=== PATIENT | female | born 1955 | race Caucasian/White ===

== ENCOUNTER 2017-07-07 05:45 | Day surgery (SDC) | payer OTHER ==
[~2017-07-07] VITALS: Ht 167.6 cm; Wt 104.1 kg
[2017-07-07] VITALS (11 sets, daily range): BP systolic 121–161; BP diastolic 80–90; PULSE 53–89; RESP 16–20; Ht 167.6 cm; Wt 104.1 kg
[2017-07-07] MEDS ORDERED: SOD CHLORIDE 0.9% 1,000 ML IV SCH (06:00)
[2017-07-07] MEDS ORDERED: CEFAZOLIN 2 GM/50 ML (PMX) 50 ML IVPB SCH (06:00)
[2017-07-07] MEDS ORDERED: CEFAZOLIN 1 GM INJ ONE (07:00)
[2017-07-07] MEDS ORDERED: GUAI120011 PO (10:29)
[2017-07-07] MEDS ORDERED: CHOL100062 PO (10:29)
[2017-07-07] MEDS ORDERED: HYDR25TA6 PO (10:30)
[2017-07-07] MEDS ORDERED: METF500T4 PO (10:30)
[2017-07-07] MEDS ORDERED: BENA20TA48 PO (11:14)
[2017-07-07] MEDS ORDERED: AMLO-147 PO (11:14)
[2017-07-07] MEDS ORDERED: ASPI-664 PO (11:14)
--- NOTE | 2017-07-07 11:37 | RADRPT ---
PROCEDURE: XR Chest. CLINICAL INDICATION: Preoperative. TECHNIQUE: Single frontal view. COMPARISON: None. FINDINGS: The lungs are clear. The heart size is normal. There is no pleural effusion or pneumothorax. There are guide wires in both breasts. IMPRESSION: 1. Guidewires in both breasts. 2. Otherwise normal chest radiograph. RPTAT: QQ .Godwin Reynolds MD, MD Date Time Electronically viewed and signed by .Godwin Reynolds MD, on 07/07/2017 11:37 .R/
--- NOTE | 2017-07-07 11:37 | RADRPT ---
PROCEDURE: XR Chest. CLINICAL INDICATION: Preoperative. TECHNIQUE: Single frontal view. COMPARISON: None. FINDINGS: The lungs are clear. The heart size is normal. There is no pleural effusion or pneumothorax. There are guide wires in both breasts. IMPRESSION: 1. Guidewires in both breasts. 2. Otherwise normal chest radiograph. RPTAT: QQ .oGdwin Reynolds MD, MD Date Time Electronically viewed and signed by .Godwin Reynolds MD, on 07/07/2017 11:37 .R/
[2017-07-07] MEDS ORDERED: BUPIVACAINE 0.25% (MPF) 30 ML INJ ONE (11:40)
[2017-07-07] MEDS ORDERED: FENTAnyl 50 MCG/ML VIAL ONE ×2 (12:06→12:27)
[2017-07-07] MEDS ORDERED: DEXAMETHASONE 4 MG/ML 1 ML INJ ONE (12:18)
[2017-07-07] MEDS ORDERED: PROPOFOL 100 ML ONE (12:18)
[2017-07-07] MEDS ORDERED: LIDOCAINE 2% (SDV) 5 ML INJ ONE (12:18)
[2017-07-07] MEDS ORDERED: KETOROLAC 30 MG INJ IV PRN (13:00)
[2017-07-07] MEDS ORDERED: EPHEDrine SULFATE 50 MG/5 ML SYG IV PRN (13:00)
[2017-07-07] MEDS ORDERED: METOCLOPRAMIDE 10 MG INJ IV PRN (13:00)
[2017-07-07] MEDS ORDERED: hydrALAzine 20 MG INJ IV PRN (13:00)
[2017-07-07] MEDS ORDERED: MEPERIDINE 25 MG INJ IV PRN (13:00)
[2017-07-07] MEDS ORDERED: FENTAnyl 50 MCG/ML VIAL IV PRN ×3 (13:00)
[2017-07-07] MEDS ORDERED: ONDANSETRON 4 MG INJ IV PRN (13:00)
[2017-07-07] MEDS ORDERED: LABETALOL HCL 20MG INJ IV PRN (13:00)
[2017-07-07] MEDS ORDERED: DIPHENHYDRAMINE 50 MG INJ IV PRN (13:00)
[2017-07-07] MEDS ORDERED: morphine (1 MG/ML) 10ML SYRINGE IV PRN ×3 (13:00)
[2017-07-07] MEDS ORDERED: ONDANSETRON 4 MG INJ ONE (13:11)
--- NOTE | 2017-07-07 13:17 | OPR ---
Date/Time of Note Date/Time of Note DATE: 07/07/17 TIME: 13:13 Operative Report Procedure Date: Jul 07, 2017 Preoperative Diagnosis right and left breast papillary lesions Postoperative Diagnosis same Operation/Procedure Performed 1. right breast needle loc biopsy with 6 cm incision 6 cm mass 2. left breast needle loc biopsy with 6 cm incision 6 cm mass 3. localized adjacent tissue transfer with the use of skin flaps 24 sq cm defect 4. therapeutic injection of subcutaneous local anesthesia Surgeon see signature line Adjusto Writer Operator none Anesthesia Type: general Estimated Blood Loss: 10 - 50 ml's Transfusion none Specimen right breast needle loc biopsy with short superior, long lateral, double long anterior markings left breast needle loc biopsy with short superior, long lateral, double long anterior markings Grafts/Implants none Complications none Pt Condition Post Procedure: stable Indications This is a 62-year-old female with right and left breast papillary lesions found on imaging and biopsy. She has considerable anxiety and wanted both of those lesions excised. She is to undergo a needle lobe biopsy on the right and left breast. Risks alternatives benefits and percent were discussed with patient. Patient's best understanding consents to the operation. Procedure Description Patient taken to the OR and prepped and draped in usual sterile fashion. Surgical timeout was performed. IV antibiotics given. Radiographic imaging is reviewed before making incision. Right breast lateral circumlinear incision is made with a 15 blade. Dissection cautery was carried down with needle localization to the area of concern. This area is excised with cautery. Hemostasis established. Due to large tissue defect localized adjacent tissue transfer with these of skin flaps was performed multilayer closure with interrupted 3-0 Vicryl and running 4-0 Monocryl. Therapeutic subcutaneous local anesthesia was injected throughout the incision site. Attention was then paid to the left breast. Radial incision is made in the inner lower left breast region. Dissection cautery was carried down to the area of concern that is identified by the needle localization. This area is excised. Hemostasis established. Due to tissue defect localized adjacent tissue transfer with his skin flaps was performed. Multilayer closure with interrupted 3-0 Vicryl and running 4-0 Monocryl. Therapeutic subcutaneous local anesthesia injected throughout the incision site. Dressings were applied. Myrtle DANGELO Jul 07, 2017 13:17
[2017-07-07] MEDS ORDERED: HYDROCODONE/APAP (5/325) TAB PO ONE (13:30)
--- NOTE | 2017-07-07 13:50 | RADRPT ---
Vent Rate: 83 bpm RR Interval: 0 msec [place] Interval: 172 msec QRS Duration: 88 msec QT Interval: 372 msec QTC Interval: 437 msec P-R-T [place]: 55 - 12 - 55 degrees Normal sinus rhythm Normal ECG Electronically Signed By: Torito Holland [id number]
--- NOTE | 2017-07-07 13:50 | RADRPT ---
Vent Rate: 83 bpm RR Interval: 0 msec [place] Interval: 172 msec QRS Duration: 88 msec QT Interval: 372 msec QTC Interval: 437 msec P-R-T [place]: 55 - 12 - 55 degrees Normal sinus rhythm Normal ECG Electronically Signed By: Torito Holland [id number]
--- NOTE | 2017-07-07 13:50 | RADRPT ---
Vent Rate: 83 bpm RR Interval: 0 msec [place] Interval: 172 msec QRS Duration: 88 msec QT Interval: 372 msec QTC Interval: 437 msec P-R-T [place]: 55 - 12 - 55 degrees Normal sinus rhythm Normal ECG Electronically Signed By: Torito Holland [id number]
== END 2017-07-07 15:00 | disposition home or self-care (01) ==
LOC: SDS 05:45 → EDSEX 05:45 → SDS 15:00
PROVIDERS: ATTEND Surgery
DX: N60.21 Fibroadenosis of right breast (principal); N60.22 Fibroadenosis of left breast; E66.01 Morbid (severe) obesity due to excess calories; Z68.37 Body mass index [BMI] 37.0-37.9, adult
CPT/HCPCS: 19120; 71010; 82962; 88307; 93005; J0690; J1100; J2405; J3010; Z7512; Z7610